=== PATIENT | male | born 1980 | race Two or more races ===

== ENCOUNTER 2017-02-11 21:10 | Emergency (ER) | payer OTHER ==
[~2017-02-11] VITALS: Ht 180.3 cm; Wt 90.7 kg
--- NOTE | 2017-02-11 21:50 | NUR ---
MSE DONE DR CUNNINGHAM IN ROOM 02A. PATIENT A & O X4.
--- NOTE | 2017-02-11 21:59 | NUR ---
Patient discharged to home in stable conditon. Written and verbal after care instructions given. Patient verbalizes understanding of instructions. Slow steadty gait.
== END 2017-02-11 22:02 | disposition home or self-care (01) ==
LOC: ER 21:11
DX: S13.4XXA Sprain of ligaments of cervical spine, initial encounter (principal); V89.2XXA Person injured in unspecified motor-vehicle accident, traffic, initial encounter; Y92.410 Unspecified street and highway as the place of occurrence of the external cause; Y93.89 Activity, other specified; Y99.8 Other external cause status
CPT/HCPCS: A4663